=== PATIENT | female | born 1980 | race Caucasian/White ===

== ENCOUNTER → 2018-04-07 14:15 | Outpatient (CLI) | payer BC, SELFPAY ==
--- NOTE | 2018-04-07 14:19 | XR_ITS ---
XR chest 2V HISTORY: ITS.REASON: cough ORDERING PHYSICIAN: BEAU Talbot PATIENT AGE: 37 years COMPARISON: None FINDINGS: The cardiomediastinal silhouette and pulmonary vascularity are within normal limits. The lungs are clear without infiltrates, suspicious nodules, or pleural effusions. No acute bony abnormalities. Mild degenerative changes are present in the midthoracic spine with mild mid thoracic scoliosis convex right IMPRESSION: No acute finding
== END ==
PROVIDERS: PCP Physician Assistant; Visit Provider Physician Assistant
DX: R05 Cough (principal)
CPT/HCPCS: 71046

== ENCOUNTER → 2018-05-18 13:31 | Outpatient (CLI) | payer BC, SELFPAY ==
--- NOTE | 2018-05-18 13:32 | MR_ITS ---
MR head/brain wo con Ordering Physician: BEAU Talbot Patient Age: 37 years: Female HISTORY: ITS.REASON: hearing loss, numbness left arm following anoxia Facial numbness. Hearing loss. HISTORY of overdose 2 weeks ago on heroin and had to be revived with narcan. Numbness left side of head and into left arm. Headache dizziness since the event. Weakness left arm. TECHNIQUE: MRI the brain without contrast. Noncontrast Multiplanar FLAIR, T1, T2 weighted images along with axial diffusion/ADC imaging performed on 1.5 T. Siemens, MRI... COMPARISON :None FINDINGS . , FLAIR as well as T1 and T2-weighted images images reveals minimal increased signal at the anterior aspect of the globus pallidus bilaterally, left slightly more so than right. No abnormal nor increased diffusion signal is seen here thus it cannot confirm as a acute or subacute ischemic process. (On the T1 images small areas of increased signal measuring up to 7.8 mm on the left & 5.5 mm on right.. t) These are nonspecific but abnormal observation. Somewhat unusual in that there is T1, T2 and FLAIR increased signal. In reviewing the literature this pattern can be seen with heroin overdose a 2 weeks out. However Should considered such things as carbon monoxide poisoning in the workup..... With this specific area of basal ganglia sensitive to anoxia other forms of anoxia can contribute.. A long list can include Other drugs and toxins, as well as other metabolic abnormalities listed. Chronic condition such as Hepatic encephalopathy and severe liver disease can cause increased T1 and T2 signal specifically and globus pallidus but unlikely the case here..... Other metabolic conditions are included, such things as nonketotic hyperglycemia; along with a list of other rare metabolic conditions but unlikely as well. After reviewing the available information suspect this MRI pattern is most likely due to recent heroin overdose sequela.. Otherwise remainder the brain appears normal. No additional white matter lesions in the centrum semiovale white matter. Normal castro-white matter patterns interface. No areas of edema or cortical prominence. No territorial infarct.. I see no focal abnormalities nor lesions to account for the left arm numbness and symptoms otherwise. No mass lesion. No extra-axial collection. The ventricles and basal cisterns unremarkable No extra-axial collection. .. Posterior fossa is unremarkable a satisfactory. The CP angles are clear. Normal contour IACs. Cranial nerve VII and VIII as a past into the respective IACs. Mastoid air cells appear well-developed and clear. Middle ear clear bilaterallyOrbits unremarkable Paranasal sinuses with very Minor observations No air-fluid levels. Right maxillary sinus. Focal area mucosal thickening or possible retention cyst measuring 11 mm AP X 24 mm height along posterior medial aspect of right maxillary sinus. Left sphenoid sinus: small round 10 mm focal area of mucosal thickening.. Right frontal sinus:: mild focal mucosal thickening inferior right frontal sinus. Moderate engorgement nasal turbinates. Scalp and skull unremarkable. The IMPRESSION: 1. No prominent findings. Only subtle abnormal observation 2. *. Small areas of increased signal seen at anterior aspect globus pallidus bilaterally. . These areas with somewhat unusual signal, with not only increased T2 and FLAIR signal, but also bright T1 signal. With given history, suspect these minimal features do most likely reflect sequela of recent heroine overdose,. However would note increased minimal focal signal at anterior globus pallidus is a nonspecific finding & can be can be seen with other conditions as detailed in body of report which I believe are all less likely.. (For exam
== END ==
PROVIDERS: PCP Physician Assistant; Visit Provider Physician Assistant
DX: R20.0 Anesthesia of skin (principal); H91.92 Unspecified hearing loss, left ear
CPT/HCPCS: 70551

== ENCOUNTER → 2018-06-17 11:59 | Outpatient (CLI) | payer BC, SELFPAY ==
--- NOTE | 2018-06-17 12:02 | XR_ITS ---
XR chest 2V HISTORY: ITS.REASON: cough ORDERING PHYSICIAN: Jaki Lay PATIENT AGE: 37 years COMPARISON: 04/07/2018 FINDINGS: The cardiomediastinal silhouette and pulmonary vascularity are within normal limits. The lungs are clear without infiltrates, suspicious nodules, or pleural effusions. There is a mild mid thoracic curvature convex right No acute bony abnormalities. IMPRESSION: Negative chest, no acute finding
== END ==
PROVIDERS: PCP Nurse Practitioner Family; Visit Provider Nurse Practitioner Family
DX: R05 Cough (principal); R06.02 Shortness of breath
CPT/HCPCS: 71046

== ENCOUNTER → 2018-06-21 10:17 | Outpatient (POV) | payer BC, SELFPAY | PROVIDERS: Visit Provider Specialist | DX: M54.2 Cervicalgia (principal); R20.0 Anesthesia of skin; M79.602 Pain in left arm | CPT/HCPCS: 95886; 95908 ==

== ENCOUNTER → 2018-07-16 13:51 | Outpatient (CLI) | payer BC, SELFPAY ==
--- NOTE | 2018-07-16 13:53 | MR_ITS ---
MR cervical spine wo con HISTORY: Neck pain with left arm pain and numbness and tingling ITS.REASON: neck pain ORDERING PHYSICIAN: Bre Simpson MD PATIENT AGE: 37 years Comparison: None TECHNIQUE: Standard multiplanar multiecho sequences are performed without contrast. 3-D MIP and myelographic images are also rendered and reviewed FINDINGS: There is normal alignment. The craniocervical junction has an unremarkable appearance. No fracture or dislocation is evident. No disc herniation or canal stenosis or foraminal stenosis apparent. No significant disc bulge or significant degenerative change. The spinal cord has an unremarkable appearance IMPRESSION: Negative MRI of the cervical spine
--- NOTE | 2018-07-16 14:47 | XR_ITS ---
EXAM: XR cervical spine w flex/ext HISTORY: Neck numbness, left-sided head numbness with pain, ITS.REASON: pain/paresthesia ORDERING PHYSICIAN: Bre Simpson MD PATIENT AGE: 37 years COMPARISON: None FINDINGS: AP, lateral, open-mouth, oblique, and flexion and extension views are performed Normal alignment. No fracture or dislocation. No lytic or blastic change. No significant degenerative change. The disc spaces are preserved. No abnormal subluxation in flexion or extension. No cervical rib IMPRESSION: Negative cervical spine. No abnormal subluxation in flexion or extension
== END ==
PROVIDERS: PCP Emergency Medicine; Visit Provider Specialist
DX: M47.22 Other spondylosis with radiculopathy, cervical region (principal); M54.2 Cervicalgia; M79.602 Pain in left arm; R20.0 Anesthesia of skin
CPT/HCPCS: 72052; 72141; 76376